=== PATIENT | male | born 1975 | race Caucasian/White ===

== ENCOUNTER 2020-05-21 14:14 | Emergency (ER) | payer OTHER, SELFPAY ==
[2020-05-21] MEDS ORDERED: Boostrix 0.5 ML VIAL ONE (14:53)
[2020-05-21] MEDS ORDERED: Acetaminophen 500 MG TAB ONE (15:30)
[2020-05-21] MEDS ORDERED: Lidocaine 1% PF 5 ML VIAL ONE (15:30)
[2020-05-21] MEDS ORDERED: chlordiazePOXIDE HCl 25 MG CAP ONE (15:30)
--- NOTE | 2020-05-21 16:14 | RAD ---
XR Finger(s) Rt Min 2 View History: Laceration to thumb Comparison: None. Findings: Open fracture through the distal phalanx tuft of the thumb with high-grade overlying soft t issue defect. Impression: Open comminuted fracture of the thumb distal phalanx tuft.
[2020-05-21] MEDS ORDERED: Bacitracin 1 PK ONE (16:24)
== END 2020-05-21 16:59 | disposition home or self-care (01) ==
LOC: ERS 14:14
DX: S62.521B Displaced fracture of distal phalanx of right thumb, initial encounter for open fracture (principal); J45.909 Unspecified asthma, uncomplicated; Z87.891 Personal history of nicotine dependence; W26.9XXA Contact with unspecified sharp object(s), initial encounter
CPT/HCPCS: 11760; 90471; 90715